=== PATIENT | female | born 1940 | race Caucasian/White ===

== ENCOUNTER 2017-01-12 14:30 | Inpatient (IN) | payer MEDICARE ==
[~2017-01-12] VITALS: Ht 170.1 cm; Wt 89.8 kg
[~2017-01-12 14:30] MED LIST: ASPIRIN ADULT L81 M1 PO; B121000 MCG/2 IM; BACTRIM DS 8001 TA1 PO; BLOOD PRESSURE MED PO; CARDIZEM CD120 MG PO; CARDIZEM120 MG PO; CLARITIN10 MG PO; COUMADIN1 MG PO; COUMADIN2 MG PO; HYDROCODONE BIT1 T11 PO; INVANZ1 GM/50 ML IV; KEFLEX500 MG PO; LIDEX 0.05% GEL60 GM PO; LISINOPRIL AND1 TAB PO; LOPRESSOR25 MG PO; MEDROL DOSEPAK4 MG PO; NORVASC5 MG PO; PRILOSEC20 M1 PO; PYRIDIUM200 MG PO; SOTALOL80 MG PO; TRICOR145 MG PO; VITAMIN D1000 IU PO; ZESTRIL10 MG PO; ZOFRAN ODT4 MG SL
[2017-01-12 14:42] VITALS: BP 150/98
[2017-01-12 15:17] LABS: BASO # 0.1 10*3/uL (0.0-0.1); BASO % 0.7 % (0.0-1.0); EOS # 0.1 10*3/uL (0.0-0.4); EOS % 1.3 % (1.0-4.0); HEMATOCRIT 40.7 % (37.0-47.0); HEMOGLOBIN 13.6 g/dl (12.0-16.0); LYMPH # 2.5 10*3/uL (1.3-4.4); LYMPH % 33.2 % (27.0-41.0); MEAN CELL VOLUME 96.4 fl (81.0-99.0); MEAN CORPUSCULAR HGB 32.2 pg (27.0-31.0); MEAN CORPUSCULAR HGB CONC 33.4 g/dl (33.0-37.0); MEAN PLATELET VOLUME 10.5 fl (9.6-12.3); MONO # 0.9 10*3/uL (0.1-1.0); MONO % 12.4 % (3.0-9.0); NEUT # 3.9 10*3/uL (2.3-7.9); NEUT % 52.1 % (47.0-73.0); PLATELET COUNT AUTOMATED 285 10*3/uL (130-400); RED BLOOD COUNT 4.22 10*6/uL (4.10-5.10); RED CELL DISTRI WIDTH 13.1 % (0-14.5); WHITE BLOOD COUNT 7.6 10*3/uL (4.8-10.8)
[2017-01-12 15:26] LABS: INTERNATIONAL NORM RATIO 2.7 (2.0-3.5); PROTHROMBIN TIME 30.5 SECONDS (9.0-12.4)
[2017-01-12 15:33] LABS: ALBUMIN 3.5 gm/dl (3.1-4.5); ALKALINE PHOSPHATASE 44 U/L (45-117); BILIRUBIN, TOTAL 0.4 mg/dl (0.2-1.0); BUN 27 mg/dl (7-24); CARBON DIOXIDE 26 mmol/L (21-32); CHLORIDE 105 mmol/L (98-107); EST GLOM FILT AFRICAN AMERICAN > 60 ml/min; GLUCOSE 101 mg/dL (65-99); MAGNESIUM 2.1 mg/dL (1.5-2.1); POTASSIUM 4.1 mmol/L (3.5-5.1); SGOT/AST 21 IU/L (3-35); SGPT/ALT 17 U/L (12-78); SODIUM 144 mmol/L (136-145); TOTAL PROTEIN 6.9 gm/dL (6.4-8.2)
[2017-01-12 15:36] LABS: TROPONIN I < 0.015 ng/ml (<0.045)
[2017-01-12 15:50] VITALS: BP 185/105
[2017-01-12 16:24] VITALS: BP 150/83
[2017-01-12 17:45] LABS: CPK 45 U/L (26-192)
[2017-01-12 17:51] LABS: CKMB < 0.5 ng/ml (0.5-3.6)
[2017-01-12] MEDS ORDERED: LISINOPRIL20 MG PO (17:51)
[2017-01-12] MEDS ORDERED: HYDR25T PO (17:51)
[2017-01-12 20:00] VITALS: BP 118/59; BP 88/40
[2017-01-13] VITALS: BP 123/88
[2017-01-13 00:08] LABS: CKMB 0.6 ng/ml (0.5-3.6)
[2017-01-13 06:12] LABS: BASO % 0.7 % (0.0-1.0); EOS # 0.1 10*3/uL (0.0-0.4); EOS % 2.4 % (1.0-4.0); HEMATOCRIT 35.2 % (37.0-47.0); HEMOGLOBIN 11.7 g/dl (12.0-16.0); LYMPH # 3.1 10*3/uL (1.3-4.4); LYMPH % 52.1 % (27.0-41.0); MEAN CELL VOLUME 98.6 fl (81.0-99.0); MEAN CORPUSCULAR HGB 32.8 pg (27.0-31.0); MEAN CORPUSCULAR HGB CONC 33.2 g/dl (33.0-37.0); MEAN PLATELET VOLUME 9.8 fl (9.6-12.3); MONO # 0.8 10*3/uL (0.1-1.0); MONO % 13.1 % (3.0-9.0); NEUT # 1.9 10*3/uL (2.3-7.9); NEUT % 31.5 % (47.0-73.0); PLATELET COUNT AUTOMATED 238 10*3/uL (130-400); RED BLOOD COUNT 3.57 10*6/uL (4.10-5.10); RED CELL DISTRI WIDTH 13.2 % (0-14.5); WHITE BLOOD COUNT 5.9 10*3/uL (4.8-10.8)
[2017-01-13 06:27] LABS: CKMB 0.5 ng/ml (0.5-3.6)
[2017-01-13 06:42] LABS: INTERNATIONAL NORM RATIO 2.8 (2.0-3.5); PROTHROMBIN TIME 32.1 SECONDS (9.0-12.4)
[2017-01-13 06:47] LABS: ALBUMIN 2.9 gm/dl (3.1-4.5); BILIRUBIN, TOTAL 0.4 mg/dl (0.2-1.0); BUN 23 mg/dl (7-24); CARBON DIOXIDE 28 mmol/L (21-32); CHLORIDE 107 mmol/L (98-107); CHOLESTEROL 232 mg/dL (<200); EST GLOM FILT AFRICAN AMERICAN > 60 ml/min; GLUCOSE 79 mg/dL (65-99); MAGNESIUM 1.9 mg/dL (1.5-2.1); SGOT/AST 15 IU/L (3-35); SGPT/ALT 15 U/L (12-78); SODIUM 143 mmol/L (136-145); TOTAL PROTEIN 5.7 gm/dL (6.4-8.2); TRIGLYCERIDES 133 mg/dl (<150); VLDL CHOLESTEROL 27 mg/dL (6-40)
[2017-01-13 06:54] LABS: ALKALINE PHOSPHATASE 38 U/L (45-117); HDL CHOLESTEROL 58 mg/dl (40-60); LDL CHOLESTEROL 147 mg/dL (9-159)
[2017-01-13 07:41] LABS: FOLIC ACID 21.6 ng/mL (>5.38); VITAMIN D, 25-HYDROXY 38.9 ng/mL (30-100)
[2017-01-13 07:56] LABS: HEMOGLOBIN A1c 5.9 % (4.8-5.6)
[2017-01-13 08:00] VITALS: BP 174/68
[2017-01-13] MEDS ORDERED: Zestril,Prinivi40 MG PO (10:48)
== END 2017-01-13 12:40 | disposition home or self-care (01) | DRG 641 ==
LOC: ED 14:30 → EDHOLD 16:26 → 5E 16:32
PROVIDERS: Emergency Medicine; Family Medicine
DX: E86.0 Dehydration (principal); I48.0 Paroxysmal atrial fibrillation; I16.1 Hypertensive emergency; E78.2 Mixed hyperlipidemia; K21.9 Gastro-esophageal reflux disease without esophagitis; I10 Essential (primary) hypertension; R74.8 Abnormal levels of other serum enzymes; R07.9 Chest pain, unspecified; Z87.891 Personal history of nicotine dependence; Z80.0 Family history of malignant neoplasm of digestive organs; Z82.49 Family history of ischemic heart disease and other diseases of the circulatory system; Z79.01 Long term (current) use of anticoagulants; Z79.899 Other long term (current) drug therapy

== ENCOUNTER → 2017-05-16 | Outpatient (CLI) | payer MEDICARE ==
[~2017-05-16] VITALS: Ht 170.1 cm; Wt 90.7 kg
[~2017-05-16] MED LIST changes: +HYDR25T PO; +LISINOPRIL-HCT1 EACH PO; +LISINOPRIL20 MG PO; +Zestril,Prinivi40 MG PO
[2017-05-17 11:30] VITALS: BP 171/70
== END ==
LOC: LAB 00:01 → SDC 05-17 01:11 → EDSTATUS 05-17 12:00
DX: I48.0 Paroxysmal atrial fibrillation (principal); R94.31 Abnormal electrocardiogram [ECG] [EKG]

== ENCOUNTER → 2019-09-15 | Outpatient (CLI) | payer MEDICARE | END | disposition home or self-care (01) | LOC: CARD 01:37 | DX: I48.0 Paroxysmal atrial fibrillation (principal); I49.9 Cardiac arrhythmia, unspecified ==

== ENCOUNTER → 2019-09-30 | Outpatient (CLI) | payer MEDICARE | END | disposition home or self-care (01) | LOC: CARD 00:02 | DX: I08.1 Rheumatic disorders of both mitral and tricuspid valves (principal); I48.0 Paroxysmal atrial fibrillation; I10 Essential (primary) hypertension ==

== ENCOUNTER 2020-10-24 09:39 | Emergency (ER) | payer MEDICARE ==
[2020-10-24 10:15] LABS: HEMATOCRIT 41.8 % (37.0-47.0); MEAN CELL VOLUME 98.8 fl (81.0-99.0); MEAN CORPUSCULAR HGB 32.4 pg (27.0-31.0); MEAN CORPUSCULAR HGB CONC 32.8 g/dl (33.0-37.0); MEAN PLATELET VOLUME 11.1 fl (9.6-12.3); PLATELET COUNT AUTOMATED 363 10*3/uL (130-400); RED BLOOD COUNT 4.23 10*6/uL (4.10-5.10); RED CELL DISTRI WIDTH 12.4 % (0-14.5); WHITE BLOOD COUNT 24.1 10*3/uL (4.8-10.8)
[2020-10-24 10:30] LABS: ALBUMIN 2.7 gm/dl (3.1-4.5); CREATININE 1.93 mg/dL (0.55-1.02); POTASSIUM 4.8 mmol/L (3.5-5.1); TOTAL PROTEIN 7.5 gm/dL (6.4-8.2)
[2020-10-24 10:31] LABS: PLATELET SUFFICIENCY NORMAL (NORMAL); POLYCHROMASIA SLIGHT; TOTAL CELLS COUNTED 100 #CELLS
[2020-10-24 10:32] LABS: SCHISTOCYTES FEW
== END 2020-10-24 14:34 | disposition short-term general hospital (02) ==
LOC: ED 09:39
PROVIDERS: Nurse Practitioner
DX: A41.9 Sepsis, unspecified organism (principal); N19 Unspecified kidney failure; N76.89 Other specified inflammation of vagina and vulva; L02.211 Cutaneous abscess of abdominal wall; E66.01 Morbid (severe) obesity due to excess calories; Z79.899 Other long term (current) drug therapy; Z79.01 Long term (current) use of anticoagulants; Z90.711 Acquired absence of uterus with remaining cervical stump; Z90.89 Acquired absence of other organs; Z87.891 Personal history of nicotine dependence

== ENCOUNTER → 2022-02-28 | Day surgery (SDC) | payer MEDICARE ==
[~2022-02-28] VITALS: Ht 170.1 cm; Wt 86.2 kg
[~2022-02-28] MED LIST changes: +METOPROLOL SUCC25 M2 PO; +XARE15TA PO
[2022-02-28 09:10] VITALS: BP 150/81
[2022-02-28 10:10] VITALS: BP 195/101
[2022-02-28 10:25] VITALS: BP 216/92
[2022-02-28 10:35] VITALS: BP 161/68
[2022-02-28 10:40] VITALS: BP 164/61
== END | disposition home or self-care (01) ==
LOC: SDC 02-23 14:00
PROVIDERS: ATTEND Ophthalmology
DX: H25.812 Combined forms of age-related cataract, left eye (principal); I10 Essential (primary) hypertension; J44.9 Chronic obstructive pulmonary disease, unspecified; K21.9 Gastro-esophageal reflux disease without esophagitis; I48.91 Unspecified atrial fibrillation; Z79.01 Long term (current) use of anticoagulants; Z79.899 Other long term (current) drug therapy; Z98.890 Other specified postprocedural states

== ENCOUNTER → 2022-04-16 | Outpatient (CLI) | payer MEDICARE | END | disposition home or self-care (01) | LOC: CARD 02:40 | PROVIDERS: ATTEND Internal Medicine Cardiovascular Disease | DX: I08.1 Rheumatic disorders of both mitral and tricuspid valves (principal) ==

== ENCOUNTER → 2022-05-02 | Day surgery (SDC) | payer MEDICARE ==
[~2022-05-02] VITALS: Ht 170.1 cm; Wt 90.7 kg
[2022-05-02 10:15] VITALS: BP 204/67
[2022-05-02 11:33] VITALS: BP 148/65
[2022-05-02 11:48] VITALS: BP 152/58
[2022-05-02 12:03] VITALS: BP 138/57
== END | disposition home or self-care (01) ==
LOC: SDC 03-30 10:15
PROVIDERS: ATTEND Ophthalmology
DX: H25.811 Combined forms of age-related cataract, right eye (principal); I10 Essential (primary) hypertension; J44.9 Chronic obstructive pulmonary disease, unspecified; K21.9 Gastro-esophageal reflux disease without esophagitis; I48.91 Unspecified atrial fibrillation; E78.5 Hyperlipidemia, unspecified; Z79.899 Other long term (current) drug therapy

== ENCOUNTER → 2022-08-10 | Outpatient (CLI) | payer MEDICARE | END | disposition home or self-care (01) | LOC: RAD 10:19 | PROVIDERS: ATTEND Nurse Practitioner | DX: M47.816 Spondylosis without myelopathy or radiculopathy, lumbar region (principal); I70.0 Atherosclerosis of aorta; M25.78 Osteophyte, vertebrae; M79.604 Pain in right leg; M25.551 Pain in right hip ==

== ENCOUNTER 2023-01-23 11:32 | Emergency (ER) | payer MEDICARE ==
[~2023-01-23] VITALS: Wt 86.2 kg
[2023-01-23 12:30] LABS: BASO # 0.1 10*3/uL (0.0-0.1); BASO % 0.7 % (0.0-1.0); EOS # 0.1 10*3/uL (0.0-0.4); EOS % 1.3 % (1.0-4.0); HEMATOCRIT 40.7 % (37.0-47.0); LYMPH # 2.5 10*3/uL (1.3-4.4); LYMPH % 34.8 % (27.0-41.0); MEAN CELL VOLUME 95.8 fl (81.0-99.0); MEAN CORPUSCULAR HGB 31.8 pg (27.0-31.0); MEAN CORPUSCULAR HGB CONC 33.2 g/dl (33.0-37.0); MEAN PLATELET VOLUME 10.2 fl (9.6-12.3); MONO # 0.9 10*3/uL (0.1-1.0); MONO % 12.3 % (3.0-9.0); NEUT # 3.6 10*3/uL (2.3-7.9); NEUT % 50.5 % (47.0-73.0); PLATELET COUNT AUTOMATED 297 10*3/uL (130-400); RED BLOOD COUNT 4.25 10*6/uL (4.10-5.10); RED CELL DISTRI WIDTH 12.5 % (0-14.5); WHITE BLOOD COUNT 7.1 10*3/uL (4.8-10.8)
[2023-01-23 12:41] LABS: INTERNATIONAL NORM RATIO 1.5 (2.0-3.5)
[2023-01-23 12:51] LABS: ALKALINE PHOSPHATASE 53 U/L (46-116); BUN 20 mg/dl (9-23); CHLORIDE 108 mmol/L (98-107); TOTAL PROTEIN 6.5 gm/dL (6.0-8.0)
[2023-01-23 12:57] LABS: SGPT/ALT < 7 U/L (10-49)
[2023-01-23 12:58] LABS: BILIRUBIN Negative (Negative); BLOOD Trace-Lysed (Negative); CLARITY Clear (Clear); COLOR Yellow (Yellow); GLUCOSE Negative (Negative); KETONE Negative (Negative); LEUKO ESTERASE Negative (Negative); NITRITE Negative (Negative); UROBILINOGEN 0.2 E.U./dl (0.0-1.0)
[2023-01-23 13:12] LABS: BACTERIA TRACE; RBC 0-2 rbc/hpf (0-2)
== END 2023-01-23 13:57 | disposition home or self-care (01) ==
LOC: ED 11:32
PROVIDERS: Emergency Medicine
DX: R42 Dizziness and giddiness (principal); R53.1 Weakness; I10 Essential (primary) hypertension; J44.9 Chronic obstructive pulmonary disease, unspecified; K21.9 Gastro-esophageal reflux disease without esophagitis; E78.00 Pure hypercholesterolemia, unspecified; I48.91 Unspecified atrial fibrillation; Z90.710 Acquired absence of both cervix and uterus; Z90.89 Acquired absence of other organs; Z98.890 Other specified postprocedural states

== ENCOUNTER 2023-02-11 20:14 | Emergency (ER) | payer MEDICARE ==
[~2023-02-11] VITALS: Ht 170.1 cm; Wt 89.4 kg
[2023-02-11 21:11] LABS: BASO # 0.1 10*3/uL (0.0-0.1); BASO % 0.9 % (0.0-1.0); EOS # 0.2 10*3/uL (0.0-0.4); HEMATOCRIT 39.3 % (37.0-47.0); LYMPH # 2.8 10*3/uL (1.3-4.4); LYMPH % 34.1 % (27.0-41.0); MEAN CELL VOLUME 99.5 fl (81.0-99.0); MEAN CORPUSCULAR HGB 31.6 pg (27.0-31.0); MEAN CORPUSCULAR HGB CONC 31.8 g/dl (33.0-37.0); MEAN PLATELET VOLUME 9.9 fl (9.6-12.3); MONO # 1.2 10*3/uL (0.1-1.0); MONO % 15.1 % (3.0-9.0); NEUT # 3.9 10*3/uL (2.3-7.9); NEUT % 47.7 % (47.0-73.0); PLATELET COUNT AUTOMATED 271 10*3/uL (130-400); RED BLOOD COUNT 3.95 10*6/uL (4.10-5.10); RED CELL DISTRI WIDTH 12.8 % (0-14.5); WHITE BLOOD COUNT 8.1 10*3/uL (4.8-10.8)
[2023-02-11 21:47] LABS: ALKALINE PHOSPHATASE 49 U/L (46-116); BUN 24 mg/dl (9-23); CHLORIDE 106 mmol/L (98-107); LIPASE 38 U/L (12-53); POTASSIUM 4.3 mmol/L (3.4-5.1); TOTAL PROTEIN 6.2 gm/dL (6.0-8.0)
[2023-02-11 21:48] LABS: SGPT/ALT < 7 U/L (10-49)
[2023-02-11 22:05] LABS: BILIRUBIN Negative (Negative); BLOOD 1+ (Negative); CLARITY Cloudy (Clear); COLOR Yellow (Yellow); GLUCOSE Negative (Negative); KETONE 1+ (Negative); LEUKO ESTERASE 3+ (Negative); NITRITE Negative (Negative); SPECIFIC GRAVITY 1.025 (1.001-1.030)
[2023-02-11 22:14] LABS: BACTERIA 1+; CALCIUM OXALATE CRYSTALS Trace; WBC 41-50 wbc/hpf (0-5)
== END 2023-02-11 22:22 | disposition home or self-care (01) ==
LOC: ED 20:14
PROVIDERS: Nurse Practitioner Family
DX: K80.20 Calculus of gallbladder without cholecystitis without obstruction (principal); Z87.442 Personal history of urinary calculi; Z79.899 Other long term (current) drug therapy; Z90.89 Acquired absence of other organs; Z90.711 Acquired absence of uterus with remaining cervical stump; Z87.891 Personal history of nicotine dependence

== ENCOUNTER 2024-06-15 17:27 | Emergency (ER) | payer MEDICARE ==
[~2024-06-15] VITALS: Wt 81.6 kg
[2024-06-15 19:30] LABS: BASO # 0.1 10*3/uL (0.0-0.1); BASO % 0.8 % (0.0-1.0); EOS # 0.2 10*3/uL (0.0-0.4); EOS % 2.5 % (1.0-4.0); HEMATOCRIT 41.5 % (37.0-47.0); MEAN CELL VOLUME 98.6 fl (81.0-99.0); MEAN CORPUSCULAR HGB 31.6 pg (27.0-31.0); MEAN PLATELET VOLUME 9.9 fl (9.6-12.3); MONO # 0.9 10*3/uL (0.1-1.0); NEUT % 41.8 % (47.0-73.0); PLATELET COUNT AUTOMATED 263 10*3/uL (130-400); RED BLOOD COUNT 4.21 10*6/uL (4.10-5.10); RED CELL DISTRI WIDTH 12.5 % (0-14.5); WHITE BLOOD COUNT 7.1 10*3/uL (4.8-10.8)
[2024-06-15 19:51] LABS: BILIRUBIN Negative (Negative); BLOOD Negative (Negative); CLARITY Clear (Clear); COLOR Yellow (Yellow); GLUCOSE Negative (Negative); KETONE Negative (Negative); LEUKO ESTERASE Negative (Negative); NITRITE Negative (Negative); UROBILINOGEN 0.2 E.U./dl (0.0-1.0)
[2024-06-15 19:51] LABS: BUN 24 mg/dl (9-23); CHLORIDE 111 mmol/L (98-107); POTASSIUM 4.4 mmol/L (3.4-5.1)
[2024-06-15 19:59] LABS: BACTERIA 2+; HYALINE CAST 0-2
[2024-06-15] MEDS ORDERED: LEVOFLOXACIN 750 MG TAB PO ONE (21:00)
[2024-06-15] MEDS ORDERED: LEVOFLOXACIN750 M2 PO (21:01)
== END 2024-06-15 21:24 | disposition home or self-care (01) ==
LOC: ED 17:27
PROVIDERS: Internal Medicine
DX: N39.0 Urinary tract infection, site not specified (principal); Z20.822 Contact with and (suspected) exposure to COVID-19; J18.9 Pneumonia, unspecified organism; I10 Essential (primary) hypertension; J44.9 Chronic obstructive pulmonary disease, unspecified; K21.9 Gastro-esophageal reflux disease without esophagitis; I48.91 Unspecified atrial fibrillation; R53.1 Weakness; F17.200 Nicotine dependence, unspecified, uncomplicated; Z90.89 Acquired absence of other organs; Z90.711 Acquired absence of uterus with remaining cervical stump; Z98.890 Other specified postprocedural states